=== PATIENT | male | born 1990 | race Caucasian/White ===

== ENCOUNTER 2021-10-22 10:23 | Inpatient (IN) ==
[2021-10-22] MEDS ORDERED: Clindamycin 900 MG/D5W BAG 900 MG/50 ML BAG IVPB ONE (10:47)
[2021-10-22] MEDS ORDERED: Morphine 4 MG/ML VIAL (1 ml) IV ONE (11:17)
[2021-10-22 11:21] LABS: ABS Lymphocytes 1.8 10^3/ul (1.0-4.8); ABS Monocytes 0.5 10^3/ul (0-0.8); ABS Neutrophils 3.6 10^3/ul (1.5-7.7); Eosinophil % 0.7 %; Hematocrit 41 % (42-52); Lymphocyte % 30.5 %; Mean Corpuscular HGB Conc 34 g/dL (31-36); Mean Corpuscular Hemoglobin 29 pg (27-31); Mean Corpuscular Volume 85 fL (80-94); Mean Platelet Volume 8.2 fL (7.4-10.4); Platelet Count 220 10^3/uL (150-450); Red Blood Count 4.87 10^6 /uL (4.18-5.48); Red Cell Distribution Width 14 % (10-15); White Blood Count 5.9 10^3/uL (3.5-10.8)
[2021-10-22 11:41] LABS: Albumin 4.4 g/dL (3.2-5.2); Albumin/Globulin Ratio 1.4 (1-3); C Reactive Protein 24.61 mg/L (<8.01); Calcium 9.1 mg/dL (8.6-10.3); Globulin 3.1 g/dL (2-4); Potassium 3.8 mmol/L (3.5-5.0); Total Bilirubin 0.5 mg/dL (0.2-1.0); Total Protein 7.5 g/dL (6.4-8.9); eGFR CKD-EPI 110.4 (>60)
[2021-10-22] MEDS ORDERED: Lidocaine 1% VIAL 10 MG/ML VIAL ONE (11:56)
[2021-10-22] MEDS ORDERED: Bupivacaine 0.5% SDV PF 30ML VIAL ONE (11:57)
[2021-10-22] MEDS ORDERED: fentaNYL 250 mcg/5 ml 50 MCG/ML 5 ml VIAL (250 MCG) ONE (12:23)
[2021-10-22] MEDS ORDERED: Midazolam 10 mg/10 ml VIAL 1 mg/ml 10 ml VIAL (10 mg) ONE (12:23)
[2021-10-22] MEDS ORDERED: Ketamine HCL 50 mg/ml 10 ml VIAL (500 MG) ONE (12:23)
[2021-10-22] MEDS ORDERED: Propofol 10 MG/ML 20 ML BTL ONE (12:25)
[2021-10-22] MEDS ORDERED: ROPIVACAINE 5 MG/ML 30 ML BTL (0.5%) ONE (12:26)
[2021-10-22] MEDS ORDERED: Vancomycin 1,250 MG in NS 0.9% 250 ml 250 ML IVPB ONE (14:00)
[2021-10-22] MEDS ORDERED: diPHENhydraMINE 25 mg TAB PO PRN (14:40)
[2021-10-22] MEDS ORDERED: Lactulose 30 ml UDC PO PRN (14:40)
[2021-10-22] MEDS ORDERED: Ondansetron 4 mg VIAL 2 MG/ML 2 ml VIAL IV PRN (14:40)
[2021-10-22] MEDS ORDERED: diPHENhydraMINE IV 50 MG/ML 1 ml VIAL (BENADRYL) IV PRN (14:40)
[2021-10-22] MEDS ORDERED: Magnesium Hydroxide LIQ 30 ML UDC PO PRN (14:40)
[2021-10-22] MEDS ORDERED: Ondansetron ODT 4 mg TAB 4 MG TAB PO PRN (14:40)
[2021-10-22] MEDS ORDERED: Vancomycin per Pharmacy 1 EA NOTE FOLLOW UP SCH (15:00)
[2021-10-22] MEDS ORDERED: Lactated Ringers 1000 ml BAG 1,000 ML IV SCH (15:00)
[2021-10-22] MEDS ORDERED: Cefepime 2 GM in Dextrose 2 GM/50 ML BAG IV ONE (16:00)
[2021-10-22] MEDS ORDERED: Cefepime 2 GM in NS 0.9% 50 ML 50 ML IVPB ONE (17:00)
[2021-10-22] MEDS: Magnesium Hydroxide LIQ 30 ML UDC PO SCH (21:50)
[2021-10-22] MEDS: Vancomycin 1,250 MG in NS 0.9% 250 ml 250 ML IVPB SCH (21:52)
[2021-10-23] MEDS: Morphine 2 MG/ML SYRINGE IV PRN ×2 (04:42→08:19)
[2021-10-23] MEDS: Vancomycin 1,250 MG in NS 0.9% 250 ml 250 ML IVPB SCH (05:25)
[2021-10-23] MEDS ORDERED: Cefepime 2 GM in NS 0.9% 50 ML 50 ML IVPB SCH (06:00)
[2021-10-23] MEDS: Magnesium Hydroxide LIQ 30 ML UDC PO SCH ×3 (08:20→22:03)
[2021-10-23] MEDS: Vitamin THERAPEUTIC TAB PO SCH (08:20)
[2021-10-23] MEDS ORDERED: Vancomycin Trough Check NOTE FOLLOW UP ONE (14:00)
[2021-10-23 15:20] LABS: eGFR CKD-EPI 127.7 (>60)
[2021-10-23] MEDS: cefTRIAXone 2 GM ADDV.VIAL 2 GM in NS 0.9% 100 ml BAG 100 ML IV SCH (15:39)
[2021-10-24] MEDS: Vitamin THERAPEUTIC TAB PO SCH (09:45)
[2021-10-24] MEDS: Magnesium Hydroxide LIQ 30 ML UDC PO SCH ×2 (09:45→21:23)
[2021-10-24] MEDS: cefTRIAXone 2 GM ADDV.VIAL 2 GM in NS 0.9% 100 ml BAG 100 ML IV SCH (13:26)
[2021-10-25] MEDS: Magnesium Hydroxide LIQ 30 ML UDC PO SCH (08:50)
[2021-10-25] MEDS: Vitamin THERAPEUTIC TAB PO SCH (08:50)
[2021-10-25] MEDS: cefTRIAXone 2 GM ADDV.VIAL 2 GM in NS 0.9% 100 ml BAG 100 ML IV SCH (13:32)
[2021-10-26] MEDS: Vitamin THERAPEUTIC TAB PO SCH (09:56)
[2021-10-26] MEDS: cefTRIAXone 2 GM ADDV.VIAL 2 GM in NS 0.9% 100 ml BAG 100 ML IV SCH (13:32)
[2021-10-27] MEDS: Vitamin THERAPEUTIC TAB PO SCH (10:19)
[2021-10-27] MEDS: cefTRIAXone 2 GM ADDV.VIAL 2 GM in NS 0.9% 100 ml BAG 100 ML IV SCH (14:26)
[2021-10-28] MEDS: Vitamin THERAPEUTIC TAB PO SCH (08:34)
[2021-10-28 13:04] VITALS: BP 126/76
[2021-10-28] MEDS: cefTRIAXone 2 GM ADDV.VIAL 2 GM in NS 0.9% 100 ml BAG 100 ML IV SCH (14:26)
== END 2021-10-28 16:01 | disposition home or self-care (01) | DRG 951 ==
LOC: ED 10:23 → SDS 14:40 → MED 14:40 → OBSVTOIN 16:18
PROVIDERS: ADMIT Orthopaedic Surgery; ATTEND Orthopaedic Surgery